=== PATIENT | female | born 1960 | race Caucasian/White ===

== ENCOUNTER 2018-11-12 04:11 | Emergency (ER) | payer BC ==
[~2018-11-12] VITALS: Ht 157.5 cm; Wt 66.2 kg
--- NOTE | 2018-11-12 04:40 | PHYS DOC ---
Adult General Chief Complaint Chief Complaint: LACERATION/AVULSION [facility] HPI Patient is a 58 year old female who presents with facial laceration. Patient is visiting from [place] and staying in a hotel room. She was found to be in her hotel bed with a laceration on her face and bleeding. The patient herself has no recollection of any event that might have caused the injury. She was drinking large amounts of alcohol this evening. She denies neck pain or any other injuries. She is uncertain when her last tetanus shot was. Review of Systems Review of Systems Constitutional: Denies fever or chills Eyes: Denies change in visual acuity, HENT: Denies nasal pain Respiratory: Denies cough or shortness of breath Cardiovascular: No additional information not addressed in HPI GI: Denies abdominal pain, nausea, vomiting : Denies dysuria Musculoskeletal: Denies back pain Integument: Denies rash or skin lesions Neurologic: Denies focal neuro complaints All other systems were reviewed and found to be within normal limits, except as documented in this note. Current Medications Current Medications Current Medications Medications (Trade) Dose Ordered Sig/Landon Start Time Stop Time Status Last Admin Dose Admin Diphtheria/ Tetanus/Acell Pertussis (Boostrix) 0.5 ml ONCE ONCE 11/12/18 05:00 11/12/18 05:01 DC 11/12/18 05:12 0.5 ML Lidocaine HCl (Lidocaine 1% 20ml Vial) 20 ml 1X ONCE 11/12/18 05:00 11/12/18 05:01 DC 11/12/18 05:11 20 ML Allergies Allergies Allergies Coded Allergies Type Severity Reaction Last Updated Verified Unable to Assess 11/12/18 No Physical Exam Physical Exam Constitutional: Well developed, well nourished, no acute distress, non-toxic appearance, smells of ETOH, HENT: Normocephalic, atraumatic, bilateral external ears normal, oropharynx moist, 2 cm laceration over right side of mandible, no additional trauma above the clavicles Eyes: PERRLA, EOMI, conjunctiva normal Neck: Normal range of motion, no tenderness Cardiovascular:Heart rate regular rhythm, no murmur Lungs & Thorax: Bilateral breath sounds clear to auscultation Abdomen: Bowel sounds normal, soft, no tenderness Skin: Warm, dry, no erythema Back: No tenderness, no CVA tenderness Extremities: No trauma Neurologic: Alert and oriented X 3, but clinically intoxicated with ETOH and speaking with slurred speech Psychologic: Affect is intoxicated but pleasant Current Patient Data Vital Signs Vital Signs Date Time Temp Pulse Resp B/P (MAP) Pulse Ox O2 Delivery O2 Flow Rate FiO2 11/12/18 04:11 98.0 81 18 122/78 (93) 97 Room Air 98.0 EKG EKG [] Radiology/Procedures Radiology/Procedures FINDINGS: No abnormal attenuation within the brain parenchyma. No evidence of acute intracranial hemorrhage. No extra-axial fluid collections. No mass effect or midline shift. Ventricular size is appropriate. Basal cisterns are patent. No fractures identified.Arredondo-white differentiation is preserved.Globes and orbits are within normal limits. Paranasal sinuses and mastoid air cells are clear. IMPRESSION: No acute intracranial findings. CT CERVICAL SPINE INDICATION: CHIN LACERATION AFTER FALL; ETOH COMPARISON: None Available. Technique: 2.5 mm contiguous axial images were obtained from the skull base through the cervicothoracic junction in both bone and soft tissue algorithm. Additional sagittal and coronal reconstructions were also performed. FINDINGS: Vertebral body height and alignment are maintained. Cervical lordosis is preserved. The lateral masses of C1 are aligned upon C2. No fractures identified. The bony canal is patent throughout. Mild intervertebral disc height loss identified in cervical spine throughout likely secondary to degeneration. The paraspinous soft tissues are unremarkable. Visualized intracranial contents are unremarkable. Emphysematous changes identified in the apical lungs. IMPRESSION: 1. No acute fracture cervical spine. Correlate clinically. 2. Mild degenerative changes cervical spine. EXAM: CT FACIAL BONES WITHOUT CONTRAST History: CHIN LACERATION AFTER FALL; ETOH COMPARISON: None TECHNIQUE: Noncontrast images of the facial bones are performed. Coronal and sagittal reformatted images are also presented for interpretation. FINDINGS: The bilateral orbital globes appear intact. Retro-orbital fat is maintained. The visualized paranasal sinuses, mastoid air cells are clear. There is mild depressed appearance of the right medial orbital wall likely old fracture given there is no opacification of the ethmoidal sinus. Moderate fat stranding identified with multiple foci of air identified in the soft tissue of the right chin anterior to the right mandible likely secondary to soft tissue injury. The visualized pterygoid plates, bilateral zygomatic arches, appear intact. IMPRESSION: 1. Moderate soft tissue fat stranding with multiple foci of air identified in the right chin region likely secondary to soft tissue injury. 2. Mild depressed appearance of the medial right orbital wall probably old fracture. Correlate clinically. Course & Med Decision Making Course & Med Decision Making Pertinent Labs and Imaging studies reviewed. (See chart for details) Patient was evaluated immediately on arrival to the ER. She is pleasantly intoxicated. Laceration on chin. Patient has no recollection of mechanism of injury. Will require sutures on face. CT head/face/c-spine ordered. 04:45: Procedure note: laceration repair face. Area was anesthetized with 2ml 's 1% lidocaine. The wound is approximately 2 cm long. There are a total of 6 sutures placed with 5-0 nylon using simple interrupted technique. The wound edges were well approximated and the wound was hemostatic at the completion of procedure. The patient tolerated well. 05:13: Patient resting quietly. CT scans pending. 06:00: CT scan is returned and free from any acute findings. Patient's is now at the bedside. He will drive her home. Discharge to home. All her questions are answered. Advised to come back to the ER and 5 days to have sutures removed. Dragon Disclaimer Dragon Disclaimer This electronic medical record was generated, in whole or in part, using a voice recognition dictation system. Departure Departure Disposition: 01 HOME, SELF-CARE Condition: TRACIE YAN DO Nov 12, 2018 04:40
[2018-11-12] MEDS ORDERED: LIDOCAINE 1% Multi-Dose 20 ML VIAL. INJ ONE (05:00)
[2018-11-12] MEDS ORDERED: DIPHTH,PERTUSS(ACELL),TET TOX 0.5 ML DISP.SYRIN. VAX IM ONE (05:00)
[2018-11-12 05:57] VITALS: BP 101/68
--- NOTE | 2018-11-12 05:57 | RAD ---
Examination: CT head, cervical spine, maxillofacial bones CT HEAD INDICATION: CHIN LACERATION AFTER FALL; ETOH COMPARISON: None Available. Exposure: One or more of the following individualized dose reduction techniques were utilized for this examination: 1. Automated exposure control 2. Adjustment of the mA and/or kV according to patient size 3. Use of iterative reconstruction technique TECHNIQUE: 5 mm contiguous axial images were obtained from the skull base to the vertex in both bone and soft tissue algorithm. FINDINGS: No abnormal attenuation within the brain parenchyma. No evidence of acute intracranial hemorrhage. No extra-axial fluid collections. No mass effect or midline shift. Ventricular size is appropriate. Basal cisterns are patent. No fractures identified.Arredondo-white differentiation is preserved.Globes and orbits are within normal limits. Paranasal sinuses and mastoid air cells are clear. IMPRESSION: No acute intracranial findings. CT CERVICAL SPINE INDICATION: CHIN LACERATION AFTER FALL; ETOH COMPARISON: None Available. Technique: 2.5 mm contiguous axial images were obtained from the skull base through the cervicothoracic junction in both bone and soft tissue algorithm. Additional sagittal and coronal reconstructions were also performed. FINDINGS: Vertebral body height and alignment are maintained. Cervical lordosis is preserved. The lateral masses of C1 are aligned upon C2. No fractures identified. The bony canal is patent throughout. Mild intervertebral disc height loss identified in cervical spine throughout likely secondary to degeneration. The paraspinous soft tissues are unremarkable. Visualized intracranial contents are unremarkable. Emphysematous changes identified in the apical lungs. IMPRESSION: 1. No acute fracture cervical spine. Correlate clinically. 2. Mild degenerative changes cervical spine. EXAM: CT FACIAL BONES WITHOUT CONTRAST History: CHIN LACERATION AFTER FALL; ETOH COMPARISON: None TECHNIQUE: Noncontrast images of the facial bones are performed. Coronal and sagittal reformatted images are also presented for interpretation. FINDINGS: The bilateral orbital globes appear intact. Retro-orbital fat is maintained. The visualized paranasal sinuses, mastoid air cells are clear. There is mild depressed appearance of the right medial orbital wall likely old fracture given there is no opacification of the ethmoidal sinus. Moderate fat stranding identified with multiple foci of air identified in the soft tissue of the right chin anterior to the right mandible likely secondary to soft tissue injury. The visualized pterygoid plates, bilateral zygomatic arches, appear intact. IMPRESSION: 1. Moderate soft tissue fat stranding with multiple foci of air identified in the right chin region likely secondary to soft tissue injury. 2. Mild depressed appearance of the medial right orbital wall probably old fracture. Correlate clinically. Electronically signed by: Don Esqueda MD (11/12/2018 5:53 AM) [facility]
== END 2018-11-12 06:20 | disposition home or self-care (01) ==
LOC: ER 04:11
DX: S01.81XA Laceration without foreign body of other part of head, initial encounter (principal); R47.81 Slurred speech; F10.129 Alcohol abuse with intoxication, unspecified; Y90.9 Presence of alcohol in blood, level not specified; X58.XXXA Exposure to other specified factors, initial encounter; Y93.89 Activity, other specified; Y92.59 Other trade areas as the place of occurrence of the external cause; Y99.8 Other external cause status
CPT/HCPCS: 12011; 70450; 70486; 72125; 90471; 90715; 99284